=== PATIENT | female | born 1940 | race Caucasian/White ===

== ENCOUNTER 2016-02-23 14:13 | Inpatient (IN) | payer MEDICARE, MEDICAID ==
[~2016-02-23] VITALS: Ht 162.6 cm; Wt 80.7 kg
[~2016-02-23 14:13] MED LIST: ASCO500T10 PO; CITA10TA9 PO; HYDR-3326 PO; OXCA600T5 PO; PERP2TAB5 PO; [UNRECOGNIZED DRUG - CODE] PO
[2016-02-23] MEDS ORDERED: IV NS 0.9% 500 ML BAG IV ONE ×2 (15:00→17:30)
[2016-02-23 15:14] LABS: BASOPHILS % (AUTO) 0.1 % (0.0-2.0); DIFF TOTAL % 100 %; EOSINOPHILS # (AUTO) 0.2 /CMM (0.0-0.7); EOSINOPHILS % (AUTO) 1.5 % (0.0-6.0); HEMATOCRIT 38 % (33-45); HEMOGLOBIN 12.4 g/dL (11.5-14.8); LYMPHOCYTES # (AUTO) 0.7 /CMM (0.8-4.8); LYMPHOCYTES % (AUTO) 4.7 % (20.0-44.0); MEAN CORPUSCULAR HEMOGLOBIN 30 PG (26.0-33.0); MEAN CORPUSCULAR HGB CONC 33 g/dl (31.0-36.0); MEAN CORPUSCULAR VOLUME 93 fL (82-100); MONOCYTES # (AUTO) 0.5 /CMM (0.1-1.30); MONOCYTES % (AUTO) 3.8 % (2.0-12.0); NEUTROPHILS # (AUTO) 12.9 /CMM (1.8-8.9); NEUTROPHILS % (AUTO) 89.9 % (43.0-81.0); PLATELET COUNT (AUTO) 346 /CMM (150-450); RED BLOOD CELL COUNT(AUTO) 4.12 MIL/uL (4.0-5.2); WHITE BLOOD COUNT (AUTO) 14.3 K/uL (4.3-11.0)
[2016-02-23 15:33] LABS: LACTIC ACID 1.4 mmol/L (0.4-2.0); TROPONIN I 0.056 ng/mL (0.00-0.056)
[2016-02-23 15:40] LABS: ALBUMIN 3.5 g/dL (3.4-5.0); BILIRUBIN,DIRECT 0.1 mg/dL (0.0-0.2); BILIRUBIN,TOTAL 0.2 mg/dL (0.2-1.0); CALCIUM, SERUM 9.6 mg/dL (8.5-10.1); CREATININE 2.2 mg/dL (0.6-1.3); INDIRECT BILIRUBIN 0.1 mg/dL (0.0-1.1); TOTAL PROTEIN, SERUM 9.1 g/dL (6.4-8.2)
[2016-02-23 15:54] LABS: INR 1.05 (0.87-1.13); PROTHROMBIN TIME 11.4 SECS (9.5-12.7)
[2016-02-23] MEDS ORDERED: IV SET PRIMARY 1 EA INFUS.SET MC ONE ×2 (15:59→17:40)
[2016-02-23] MEDS ORDERED: IV NS 0.9% 500 ML IV ONE ×3 (15:59→23:30)
[2016-02-23 16:58] LABS: KETONES,URINE NEGATIVE (NEGATIVE); LEUKOCYTE ESTERASE ,URINE 3+ (NEGATIVE); PH,URINE 5.5 (5.0-8.0)
[2016-02-23 17:00] LABS: ADD UA MICROSCOPIC YES
[2016-02-23 17:16] LABS: ADD URINE CULTURE YES; RBC,URINE TOO NUMEROUS TO COUN /HPF (0-2); WBC,URINE TOO NUMEROUS TO COUN /HPF (0-3)
[2016-02-23] MEDS ORDERED: LEVOFLOXACIN 750 MG /D5W 150ML 150 ML IV ONE ×2 (17:30→17:40)
[2016-02-23] MEDS ORDERED: AZTREONAM 1 G in IV NS 0.9% 100 ML IV ONE (17:30)
[2016-02-23] MEDS ORDERED: IV SET PRIMARY PUMP SET 1 EA INFUS.SET MC ONE (17:40)
[2016-02-23 20:00] VITALS: BP 124/70
[2016-02-23 21:17] LABS: CREATININE 2.2 mg/dL (0.6-1.3); POTASSIUM 5.7 mmol/L (3.5-5.1)
[2016-02-23 22:00] VITALS: BP 124/70
[2016-02-23] MEDS ORDERED: ONDANSETRON HCL/PF 4 MG/2 ML VIAL IV PRN (23:30)
[2016-02-23] MEDS ORDERED: ACETAMINOPHEN 325 MG TABLET PO PRN (23:30)
[2016-02-23] MEDS ORDERED: IV NS 0.9% 1,000 ML BAG IV PRN (23:30)
[2016-02-24] VITALS: BP 130/66
[2016-02-24] MEDS ORDERED: IV SET PRIMARY PUMP SET 1 EA INFUS.SET MC ONE (00:28)
[2016-02-24] MEDS ORDERED: IV NS 0.9% 500 ML IV ONE (00:29)
[2016-02-24] MEDS ORDERED: IV SET PRIMARY 1 EA INFUS.SET MC ONE (00:41)
[2016-02-24 04:00] VITALS: BP 132/77
[2016-02-24] MEDS ORDERED: DOSE PER PHARMACY (MD SPECIFY MEDICATION) 1 EA XX PRN (07:30)
[2016-02-24] MEDS ORDERED: IV NS 0.9% 1,000 ML IV PRN (07:30)
[2016-02-24 08:00] VITALS: BP 110/83
[2016-02-24 09:14] LABS: BASOPHILS % (AUTO) 0.1 % (0.0-2.0); DIFF TOTAL % 100 %; EOSINOPHILS # (AUTO) 0.2 /CMM (0.0-0.7); EOSINOPHILS % (AUTO) 1.7 % (0.0-6.0); HEMATOCRIT 35 % (33-45); HEMOGLOBIN 11.4 g/dL (11.5-14.8); LYMPHOCYTES # (AUTO) 0.8 /CMM (0.8-4.8); LYMPHOCYTES % (AUTO) 5.9 % (20.0-44.0); MEAN CORPUSCULAR HEMOGLOBIN 31 PG (26.0-33.0); MEAN CORPUSCULAR HGB CONC 33 g/dl (31.0-36.0); MEAN CORPUSCULAR VOLUME 94 fL (82-100); MONOCYTES # (AUTO) 0.9 /CMM (0.1-1.30); MONOCYTES % (AUTO) 6.8 % (2.0-12.0); NEUTROPHILS % (AUTO) 85.5 % (43.0-81.0); PLATELET COUNT (AUTO) 272 /CMM (150-450); RED BLOOD CELL COUNT(AUTO) 3.68 MIL/uL (4.0-5.2); WHITE BLOOD COUNT (AUTO) 12.9 K/uL (4.3-11.0)
[2016-02-24 09:38] LABS: BILIRUBIN,TOTAL 0.2 mg/dL (0.2-1.0); CALCIUM, SERUM 9.1 mg/dL (8.5-10.1); PHOSPHORUS 4.6 mg/dL (2.5-4.9); POTASSIUM 5.8 mmol/L (3.5-5.1); TOTAL PROTEIN, SERUM 8.2 g/dL (6.4-8.2)
[2016-02-24 12:00] VITALS: BP 125/83
[2016-02-24] MEDS ORDERED: SODIUM POLYSTYRENE SULFONATE 15 G/60 ML BOTTLE PO ONE (12:30)
[2016-02-24] MEDS ORDERED: IV D5/ 0.9% NACL 1,000 ML IV ONE (12:38)
[2016-02-24] MEDS: IV D5/ 0.9% NACL 1,000 ML IV PRN (12:43)
[2016-02-24] MEDS ORDERED: FUROSEMIDE 40 MG/4 ML VIAL IV ONE (13:00)
[2016-02-24] MEDS ORDERED: PERMETHRIN 5% CRM 60 GM TUBE TP ONE (13:00)
[2016-02-24 16:00] VITALS: BP 124/63
[2016-02-24 20:00] VITALS: BP 111/61
[2016-02-24] MEDS ORDERED: HYDROCODONE/APAP 5/325MG 1 EACH TABLET PO PRN (20:30)
[2016-02-24] MEDS: OXCARBAZEPINE 150 MG TABLET PO SCH (20:34)
[2016-02-24] MEDS: ASCORBIC ACID 500 MG TABLET PO SCH (20:35)
[2016-02-24] MEDS: PROSOURCE / PROSTAT (PYXIS) 30 ML UDC GT SCH (20:35)
[2016-02-24] MEDS ORDERED: PERPHENAZINE 2 MG TABLET PO SCH (21:00)
[2016-02-24] MEDS ORDERED: CITALOPRAM HYDROBROMIDE SOLN 10 MG/5 ML UDC ONE (21:23)
[2016-02-24] MEDS: CITALOPRAM HYDROBROMIDE 10 MG TABLET PO SCH (22:12)
[2016-02-25] VITALS: BP 130/82
[2016-02-25 04:00] VITALS: BP 150/63
[2016-02-25] MEDS: IV D5/ 0.9% NACL 1,000 ML IV PRN (05:14)
[2016-02-25] MEDS ORDERED: ZIPRASIDONE MESYLATE 20 MG/VIAL VIAL IM ONE ×2 (05:34→21:54)
[2016-02-25] MEDS: ZIPRASIDONE MESYLATE 20 MG/VIAL VIAL IM PRN ×3 (05:46→22:06)
[2016-02-25 08:00] VITALS: BP 136/57
[2016-02-25 08:02] LABS: BASOPHILS % (AUTO) 0.3 % (0.0-2.0); DIFF TOTAL % 100 %; EOSINOPHILS # (AUTO) 0.4 /CMM (0.0-0.7); EOSINOPHILS % (AUTO) 5.6 % (0.0-6.0); HEMATOCRIT 31 % (33-45); HEMOGLOBIN 10.3 g/dL (11.5-14.8); LYMPHOCYTES # (AUTO) 0.7 /CMM (0.8-4.8); LYMPHOCYTES % (AUTO) 9.8 % (20.0-44.0); MEAN CORPUSCULAR HEMOGLOBIN 31 PG (26.0-33.0); MEAN CORPUSCULAR HGB CONC 34 g/dl (31.0-36.0); MEAN CORPUSCULAR VOLUME 93 fL (82-100); MONOCYTES # (AUTO) 0.5 /CMM (0.1-1.30); MONOCYTES % (AUTO) 6.7 % (2.0-12.0); NEUTROPHILS # (AUTO) 5.4 /CMM (1.8-8.9); NEUTROPHILS % (AUTO) 77.6 % (43.0-81.0); PLATELET COUNT (AUTO) 211 /CMM (150-450); RED BLOOD CELL COUNT(AUTO) 3.32 MIL/uL (4.0-5.2)
[2016-02-25 08:15] LABS: CREATININE 1.3 mg/dL (0.6-1.3); PHOSPHORUS 1.7 mg/dL (2.5-4.9); POTASSIUM 3.3 mmol/L (3.5-5.1)
[2016-02-25] MEDS: OXCARBAZEPINE 150 MG TABLET PO SCH ×2 (08:31→17:07)
[2016-02-25] MEDS: ASCORBIC ACID 500 MG TABLET PO SCH (08:31)
[2016-02-25] MEDS: PROSOURCE / PROSTAT (PYXIS) 30 ML UDC GT SCH ×3 (08:31→17:06)
[2016-02-25] MEDS: CITALOPRAM HYDROBROMIDE 10 MG TABLET PO SCH (09:00)
[2016-02-25] MEDS: PERPHENAZINE 2 MG TABLET PO SCH ×3 (09:00→17:07)
[2016-02-25] MEDS ORDERED: SECONDARY IV SET 1 EA INFUS.SET MC ONE ×2 (11:04→17:06)
[2016-02-25] MEDS: Potassium Phosphate meq 11 MEQ in IV D5W 100 ML IV SCH ×2 (11:09→15:16)
[2016-02-25] MEDS: ENOXAPARIN SODIUM 40 MG/0.4 ML DISP.SYRIN SQ SCH (11:09)
[2016-02-25] MEDS ORDERED: Z GUARD REMEDY 4 OZ OINT TP PRN (14:30)
[2016-02-25 16:00] VITALS: BP 139/61
[2016-02-25] MEDS: Z GUARD REMEDY 2 OZ OINT TP SCH ×2 (17:07→17:11)
[2016-02-25] MEDS: IV D5/0.45 NACL 1,000 ML IV PRN (17:14)
[2016-02-25] MEDS ORDERED: LEVOFLOXACIN 750 MG /D5W 150ML 750 MG in PREMIX 1 EA IV SCH (18:00)
[2016-02-25 20:00] VITALS: BP 141/80
[2016-02-25] MEDS ORDERED: PERMETHRIN 5% CRM 60 GM TUBE TP ONE (21:30)
[2016-02-26] MEDS: ZIPRASIDONE MESYLATE 20 MG/VIAL VIAL IM PRN (06:40)
[2016-02-26 08:00] VITALS: BP 141/49
[2016-02-26 08:52] LABS: DIFF TOTAL % 100 %; EOSINOPHILS # (AUTO) 0.4 /CMM (0.0-0.7); EOSINOPHILS % (AUTO) 5.1 % (0.0-6.0); HEMATOCRIT 35 % (33-45); HEMOGLOBIN 11.4 g/dL (11.5-14.8); LYMPHOCYTES # (AUTO) 0.7 /CMM (0.8-4.8); LYMPHOCYTES % (AUTO) 8.2 % (20.0-44.0); MEAN CORPUSCULAR HEMOGLOBIN 31 PG (26.0-33.0); MEAN CORPUSCULAR HGB CONC 33 g/dl (31.0-36.0); MEAN CORPUSCULAR VOLUME 93 fL (82-100); MONOCYTES # (AUTO) 0.4 /CMM (0.1-1.30); MONOCYTES % (AUTO) 4.6 % (2.0-12.0); NEUTROPHILS # (AUTO) 6.9 /CMM (1.8-8.9); NEUTROPHILS % (AUTO) 82.1 % (43.0-81.0); PLATELET COUNT (AUTO) 243 /CMM (150-450); RED BLOOD CELL COUNT(AUTO) 3.72 MIL/uL (4.0-5.2); WHITE BLOOD COUNT (AUTO) 8.4 K/uL (4.3-11.0)
[2016-02-26] MEDS: PERPHENAZINE 2 MG TABLET PO SCH ×3 (09:22→16:48)
[2016-02-26] MEDS: ASCORBIC ACID 500 MG TABLET PO SCH (09:22)
[2016-02-26] MEDS: OXCARBAZEPINE 150 MG TABLET PO SCH ×2 (09:22→16:48)
[2016-02-26] MEDS: PROSOURCE / PROSTAT (PYXIS) 30 ML UDC GT SCH ×3 (09:22→16:47)
[2016-02-26] MEDS: CITALOPRAM HYDROBROMIDE 10 MG TABLET PO SCH (09:22)
[2016-02-26] MEDS: Z GUARD REMEDY 2 OZ OINT TP SCH ×2 (09:23→16:48)
[2016-02-26] MEDS: ENOXAPARIN SODIUM 40 MG/0.4 ML DISP.SYRIN SQ SCH (09:23)
[2016-02-26 09:30] LABS: ALBUMIN 2.8 g/dL (3.4-5.0); BILIRUBIN,TOTAL 0.2 mg/dL (0.2-1.0); CALCIUM, SERUM 9.3 mg/dL (8.5-10.1); CREATININE 1.2 mg/dL (0.6-1.3); POTASSIUM 3.5 mmol/L (3.5-5.1)
[2016-02-26] MEDS ORDERED: FEE PK DOSING 1 MIN EA MC ONE (11:59)
[2016-02-26] MEDS ORDERED: SECONDARY IV SET 1 EA INFUS.SET MC ONE (13:37)
[2016-02-26] MEDS: GENTAMICIN 80 MG in IV D5W 100 ML IV SCH (13:53)
[2016-02-26 16:00] VITALS: BP 155/69
[2016-02-26] MEDS ORDERED: NEUTRA PHOS 1 POWD.PACKET PO ONE (16:00)
[2016-02-26] MEDS ORDERED: OLANZAPINE 10 MG VIAL IM PRN (17:30)
[2016-02-26] MEDS: OLANZAPINE 5 MG/TAB.RAPDIS PO SCH (18:24)
[2016-02-27] MEDS ORDERED: OLANZAPINE 10 MG VIAL IM ONE (02:53)
[2016-02-27 07:35] LABS: BASOPHILS % (AUTO) 0.4 % (0.0-2.0); DIFF TOTAL % 100 %; HEMATOCRIT 33 % (33-45); HEMOGLOBIN 10.8 g/dL (11.5-14.8); LYMPHOCYTES # (AUTO) 1.2 /CMM (0.8-4.8); LYMPHOCYTES % (AUTO) 16.3 % (20.0-44.0); MEAN CORPUSCULAR HEMOGLOBIN 31 PG (26.0-33.0); MEAN CORPUSCULAR HGB CONC 33 g/dl (31.0-36.0); MEAN CORPUSCULAR VOLUME 93 fL (82-100); MONOCYTES # (AUTO) 0.4 /CMM (0.1-1.30); MONOCYTES % (AUTO) 6.2 % (2.0-12.0); NEUTROPHILS # (AUTO) 4.5 /CMM (1.8-8.9); NEUTROPHILS % (AUTO) 63.1 % (43.0-81.0); PLATELET COUNT (AUTO) 245 /CMM (150-450); RED BLOOD CELL COUNT(AUTO) 3.52 MIL/uL (4.0-5.2); WHITE BLOOD COUNT (AUTO) 7.2 K/uL (4.3-11.0)
[2016-02-27 07:54] LABS: CALCIUM, SERUM 8.8 mg/dL (8.5-10.1); CREATININE 1.2 mg/dL (0.6-1.3); PHOSPHORUS 2.2 mg/dL (2.5-4.9); POTASSIUM 3.1 mmol/L (3.5-5.1)
[2016-02-27 08:00] VITALS: BP 144/59
[2016-02-27] MEDS: IV D5/0.45 NACL 1,000 ML IV PRN (08:19)
[2016-02-27] MEDS: ENOXAPARIN SODIUM 40 MG/0.4 ML DISP.SYRIN SQ SCH (09:17)
[2016-02-27] MEDS: OLANZAPINE 5 MG/TAB.RAPDIS PO SCH (09:17)
[2016-02-27] MEDS: OXCARBAZEPINE 150 MG TABLET PO SCH (09:18)
[2016-02-27] MEDS: PROSOURCE / PROSTAT (PYXIS) 30 ML UDC GT SCH ×2 (09:18→12:43)
[2016-02-27] MEDS: CITALOPRAM HYDROBROMIDE 10 MG TABLET PO SCH (09:18)
[2016-02-27] MEDS: ASCORBIC ACID 500 MG TABLET PO SCH (09:18)
[2016-02-27] MEDS: Z GUARD REMEDY 2 OZ OINT TP SCH (09:19)
[2016-02-27] MEDS: POTASSIUM CHLORIDE 20 MEQ POWDER PACKET PO SCH ×2 (12:43→13:45)
[2016-02-27] MEDS: GENTAMICIN 80 MG in IV D5W 100 ML IV SCH (12:43)
[2016-02-27] MEDS: Magnesium 1GM/D5W 100ML PREMIX 100 ML IV SCH ×2 (13:20→14:27)
[2016-02-27] MEDS ORDERED: K PHOS NEUTRAL 250 MG TABLET PO ONE (16:00)
[2016-02-27] MEDS ORDERED: ALLA266C2 TP (17:10)
[2016-02-27] MEDS ORDERED: MAGN64TA7 PO (17:10)
[2016-02-27] MEDS ORDERED: GENT40VI2 IV (17:10)
[2016-02-27] MEDS ORDERED: OLAN2.5T3 PO (17:10)
[2016-02-27] MEDS ORDERED: ONDA2VIA IV (17:10)
[2016-02-27] MEDS ORDERED: AMIN30LI25 PO (17:10)
[2016-02-27] MEDS ORDERED: OLAN10VI IM (17:10)
== END 2016-02-27 16:16 | DRG 689 ==
LOC: ER 14:13 → TELE1 19:06 → MEDSG1 02-25 09:50
PROVIDERS: ADMIT Internal Medicine Nephrology; ATTEND Internal Medicine Nephrology
DX: N39.0 Urinary tract infection, site not specified (principal); N17.0 Acute kidney failure with tubular necrosis; E87.0 Hyperosmolality and hypernatremia; F05 Delirium due to known physiological condition; N20.2 Calculus of kidney with calculus of ureter; E87.5 Hyperkalemia; D64.9 Anemia, unspecified; E03.9 Hypothyroidism, unspecified; E83.39 Other disorders of phosphorus metabolism; F02.80 Dementia in other diseases classified elsewhere, unspecified severity, without behavioral disturbance, psychotic disturbance, mood disturbance, and anxiety; G30.9 Alzheimer's disease, unspecified; F31.9 Bipolar disorder, unspecified; K21.9 Gastro-esophageal reflux disease without esophagitis; Z87.442 Personal history of urinary calculi; F25.0 Schizoaffective disorder, bipolar type; B96.20 Unspecified Escherichia coli [E. coli] as the cause of diseases classified elsewhere; B86 Scabies; E11.9 Type 2 diabetes mellitus without complications
CPT/HCPCS: 36415; 70450-TC; 71010-TC; 80048-TC; 80053-TC; 80076-TC; 81000-TC; 83605-TC; 83735-TC; 84100-TC; 84484-TC; 85025-TC; 85730-TC; 87040-TC; 87081-TC; 87086-TC; 87186-TC; 87400; 92526; 92611-TC; A4216; A4606; A6253; J1580; J1650; J1940; J1956; J3475; J3486; J3490; J7030; J7040; J7042; J7060; Q0175; Z7610

== ENCOUNTER 2016-02-27 16:17 | Inpatient (IN) | payer MEDICARE, MEDICAID ==
[~2016-02-27] VITALS: Ht 160 cm; Wt 73.5 kg
[2016-02-27] MEDS ORDERED: MAG HYDROX/AL HYDROX/SIMETH 30 ML UDC PO PRN (17:00)
[2016-02-27] MEDS ORDERED: ACETAMINOPHEN 325 MG TABLET PO PRN (17:00)
[2016-02-27] MEDS ORDERED: MAGNESIUM HYDROXIDE 30 ML UDC PO PRN (17:00)
[2016-02-27] MEDS ORDERED: GENT40VI2 IV (17:10)
[2016-02-27] MEDS ORDERED: OLAN2.5T3 PO (17:10)
[2016-02-27] MEDS ORDERED: AMIN30LI25 PO (17:10)
[2016-02-27] MEDS ORDERED: ALLA266C2 TP (17:10)
[2016-02-27] MEDS ORDERED: MAGN64TA7 PO (17:10)
[2016-02-27] MEDS ORDERED: OLAN10VI IM (17:10)
[2016-02-27] MEDS ORDERED: ONDA2VIA IV (17:10)
[2016-02-27 18:38] VITALS: BP 126/70
[2016-02-27 20:00] VITALS: BP 102/56
[2016-02-27] MEDS: TEMAZEPAM 7.5 MG CAPSULE PO PRN (21:54)
[2016-02-27] MEDS: CITALOPRAM HYDROBROMIDE 10 MG TABLET PO SCH (21:54)
[2016-02-27] MEDS: OLANZAPINE 5 MG/TAB.RAPDIS PO SCH (21:55)
[2016-02-28 07:35] LABS: ALBUMIN 2.8 g/dL (3.4-5.0); BILIRUBIN,TOTAL 0.3 mg/dL (0.2-1.0); CALCIUM, SERUM 8.9 mg/dL (8.5-10.1); CREATININE 1.2 mg/dL (0.6-1.3); POTASSIUM 4.2 mmol/L (3.5-5.1); TOTAL PROTEIN, SERUM 7.7 g/dL (6.4-8.2)
[2016-02-28 08:00] VITALS: BP 134/60
[2016-02-28] MEDS: Z GUARD REMEDY 2 OZ OINT TP SCH ×2 (09:09→17:04)
[2016-02-28] MEDS: OXCARBAZEPINE 150 MG TABLET PO SCH ×3 (09:09→17:04)
[2016-02-28] MEDS: MAGNESIUM CHLORIDE 64 MG TABLET.SA PO SCH (09:09)
[2016-02-28] MEDS: PROSOURCE / PROSTAT (PYXIS) 30 ML UDC PO SCH ×3 (09:09→17:04)
[2016-02-28] MEDS: ASCORBIC ACID 500 MG TABLET PO SCH (09:09)
[2016-02-28] MEDS: NITROFURANTOIN/NITROFURAN MAC 100 MG CAPSULE PO SCH ×2 (10:58→21:28)
[2016-02-28] MEDS ORDERED: GENTAMICIN 80 MG in IV D5W 100 ML IV SCH (13:00)
[2016-02-28] MEDS ORDERED: GENTAMICIN 80 MG/2 ML VIAL IV SCH (15:00)
[2016-02-28 16:00] VITALS: BP 108/69
[2016-02-28 20:32] VITALS: BP 121/68
[2016-02-28] MEDS: CITALOPRAM HYDROBROMIDE 10 MG TABLET PO SCH (23:15)
[2016-02-28] MEDS: OLANZAPINE 5 MG/TAB.RAPDIS PO SCH (23:16)
[2016-02-28] MEDS: TEMAZEPAM 7.5 MG CAPSULE PO PRN (23:16)
[2016-02-29 08:00] VITALS: BP 133/74
[2016-02-29 08:38] LABS: CALCIUM, SERUM 9.1 mg/dL (8.5-10.1); CREATININE 1.3 mg/dL (0.6-1.3); POTASSIUM 3.7 mmol/L (3.5-5.1)
[2016-02-29] MEDS: MAGNESIUM CHLORIDE 64 MG TABLET.SA PO SCH (10:51)
[2016-02-29] MEDS: NITROFURANTOIN/NITROFURAN MAC 100 MG CAPSULE PO SCH ×2 (10:51→22:15)
[2016-02-29] MEDS: OXCARBAZEPINE 150 MG TABLET PO SCH ×2 (10:51→16:19)
[2016-02-29] MEDS: Z GUARD REMEDY 2 OZ OINT TP SCH ×2 (10:52→16:19)
[2016-02-29] MEDS: ASCORBIC ACID 500 MG TABLET PO SCH (10:53)
[2016-02-29] MEDS: PROSOURCE / PROSTAT (PYXIS) 30 ML UDC PO SCH ×3 (10:53→16:19)
[2016-02-29 16:00] VITALS: BP 121/50
[2016-02-29 20:00] VITALS: BP 101/61
[2016-02-29] MEDS: OLANZAPINE 5 MG/TAB.RAPDIS PO SCH (22:15)
[2016-02-29] MEDS: TEMAZEPAM 7.5 MG CAPSULE PO PRN (22:15)
[2016-02-29] MEDS: CITALOPRAM HYDROBROMIDE 10 MG TABLET PO SCH (22:15)
[2016-03-01] MEDS: LORAZEPAM 0.5 MG TABLET PO PRN ×2 (00:44→14:37)
[2016-03-01 08:00] VITALS: BP 120/71
[2016-03-01] MEDS: ASCORBIC ACID 500 MG TABLET PO SCH (09:19)
[2016-03-01] MEDS: MAGNESIUM CHLORIDE 64 MG TABLET.SA PO SCH (09:19)
[2016-03-01] MEDS: OXCARBAZEPINE 150 MG TABLET PO SCH ×2 (09:19→17:57)
[2016-03-01] MEDS: NITROFURANTOIN/NITROFURAN MAC 100 MG CAPSULE PO SCH ×2 (09:20→21:08)
[2016-03-01] MEDS: PROSOURCE / PROSTAT (PYXIS) 30 ML UDC PO SCH ×3 (09:20→17:59)
[2016-03-01] MEDS: Z GUARD REMEDY 2 OZ OINT TP SCH ×2 (09:20→17:59)
[2016-03-01] MEDS: HYDROCODONE/APAP 5/325MG 1 EACH TABLET PO PRN (13:32)
[2016-03-01] MEDS: diphenhydrAMINE HCL 25 MG CAPSULE PO PRN (15:30)
[2016-03-01 16:12] VITALS: BP 120/67
[2016-03-01 19:56] VITALS: BP 127/75
[2016-03-01] MEDS ORDERED: PERMETHRIN 5% CRM 60 GM TUBE TP ONE (21:00)
[2016-03-01] MEDS: MUPIROCIN OINT 2% 22 GM TUBE SCH (21:07)
[2016-03-01] MEDS: OLANZAPINE 5 MG/TAB.RAPDIS PO SCH (21:08)
[2016-03-01] MEDS: CITALOPRAM HYDROBROMIDE 10 MG TABLET PO SCH (21:08)
[2016-03-01] MEDS: TEMAZEPAM 7.5 MG CAPSULE PO PRN (21:09)
[2016-03-02 08:00] VITALS: BP 122/59
[2016-03-02] MEDS: MAGNESIUM CHLORIDE 64 MG TABLET.SA PO SCH (09:06)
[2016-03-02] MEDS: PROSOURCE / PROSTAT (PYXIS) 30 ML UDC PO SCH ×3 (09:06→17:33)
[2016-03-02] MEDS: NITROFURANTOIN/NITROFURAN MAC 100 MG CAPSULE PO SCH ×2 (09:06→20:28)
[2016-03-02] MEDS: ASCORBIC ACID 500 MG TABLET PO SCH (09:07)
[2016-03-02] MEDS: OXCARBAZEPINE 150 MG TABLET PO SCH ×2 (09:07→17:33)
[2016-03-02] MEDS: MUPIROCIN OINT 2% 22 GM TUBE SCH ×2 (09:08→20:35)
[2016-03-02] MEDS: Z GUARD REMEDY 2 OZ OINT TP SCH ×2 (09:09→17:33)
[2016-03-02 16:00] VITALS: BP 105/60
[2016-03-02 19:53] VITALS: BP 101/56
[2016-03-02] MEDS: CITALOPRAM HYDROBROMIDE 10 MG TABLET PO SCH (21:02)
[2016-03-02] MEDS: OLANZAPINE 5 MG/TAB.RAPDIS PO SCH (21:02)
[2016-03-02] MEDS: TEMAZEPAM 7.5 MG CAPSULE PO PRN (21:02)
[2016-03-03 07:18] LABS: BASOPHILS % (AUTO) 0.3 % (0.0-2.0); DIFF TOTAL % 100 %; EOSINOPHILS # (AUTO) 0.8 /CMM (0.0-0.7); EOSINOPHILS % (AUTO) 8.3 % (0.0-6.0); HEMATOCRIT 37 % (33-45); HEMOGLOBIN 12.2 g/dL (11.5-14.8); LYMPHOCYTES # (AUTO) 1.1 /CMM (0.8-4.8); LYMPHOCYTES % (AUTO) 11.6 % (20.0-44.0); MEAN CORPUSCULAR HEMOGLOBIN 31 PG (26.0-33.0); MEAN CORPUSCULAR HGB CONC 34 g/dl (31.0-36.0); MEAN CORPUSCULAR VOLUME 93 fL (82-100); MONOCYTES # (AUTO) 0.5 /CMM (0.1-1.30); MONOCYTES % (AUTO) 5.1 % (2.0-12.0); NEUTROPHILS # (AUTO) 7.1 /CMM (1.8-8.9); NEUTROPHILS % (AUTO) 74.7 % (43.0-81.0); PLATELET COUNT (AUTO) 235 /CMM (150-450); RED BLOOD CELL COUNT(AUTO) 3.95 MIL/uL (4.0-5.2); WHITE BLOOD COUNT (AUTO) 9.6 K/uL (4.3-11.0)
[2016-03-03 07:43] LABS: CREATININE 1.3 mg/dL (0.6-1.3); PHOSPHORUS 3.1 mg/dL (2.5-4.9); POTASSIUM 3.7 mmol/L (3.5-5.1)
[2016-03-03 08:00] VITALS: BP 109/60
[2016-03-03] MEDS: MAGNESIUM CHLORIDE 64 MG TABLET.SA PO SCH (09:00)
[2016-03-03] MEDS: MUPIROCIN OINT 2% 22 GM TUBE SCH ×2 (09:00→21:59)
[2016-03-03] MEDS: ASCORBIC ACID 500 MG TABLET PO SCH (09:00)
[2016-03-03] MEDS: OXCARBAZEPINE 150 MG TABLET PO SCH ×2 (09:00→17:00)
[2016-03-03] MEDS: NITROFURANTOIN/NITROFURAN MAC 100 MG CAPSULE PO SCH ×2 (09:00→21:53)
[2016-03-03] MEDS: PROSOURCE / PROSTAT (PYXIS) 30 ML UDC PO SCH ×3 (09:00→17:00)
[2016-03-03] MEDS: Z GUARD REMEDY 2 OZ OINT TP SCH ×2 (10:37→17:00)
[2016-03-03 16:00] VITALS: BP 131/69
[2016-03-03] MEDS: CITALOPRAM HYDROBROMIDE 10 MG TABLET PO SCH (21:54)
[2016-03-03] MEDS: OLANZAPINE 5 MG/TAB.RAPDIS PO SCH (21:54)
[2016-03-03] MEDS: diphenhydrAMINE HCL 25 MG CAPSULE PO PRN (21:55)
[2016-03-03 22:11] VITALS: BP 112/65
[2016-03-04 08:00] VITALS: BP 130/68
[2016-03-04] MEDS: ASCORBIC ACID 500 MG TABLET PO SCH (08:36)
[2016-03-04] MEDS: MUPIROCIN OINT 2% 22 GM TUBE SCH ×2 (08:37→21:04)
[2016-03-04] MEDS: PROSOURCE / PROSTAT (PYXIS) 30 ML UDC PO SCH ×3 (08:37→16:33)
[2016-03-04] MEDS: NITROFURANTOIN/NITROFURAN MAC 100 MG CAPSULE PO SCH (08:37)
[2016-03-04] MEDS: OXCARBAZEPINE 150 MG TABLET PO SCH ×2 (08:37→16:34)
[2016-03-04] MEDS: Z GUARD REMEDY 2 OZ OINT TP SCH ×2 (08:37→16:33)
[2016-03-04] MEDS: MAGNESIUM CHLORIDE 64 MG TABLET.SA PO SCH (08:37)
[2016-03-04] MEDS ORDERED: IVERMECTIN 3 MG TABLET PO ONE (13:00)
[2016-03-04 16:36] VITALS: BP 141/77
[2016-03-04 19:55] VITALS: BP 114/71
[2016-03-04] MEDS: OLANZAPINE 5 MG/TAB.RAPDIS PO SCH (21:05)
[2016-03-04] MEDS: CITALOPRAM HYDROBROMIDE 10 MG TABLET PO SCH (21:05)
[2016-03-05 08:00] VITALS: BP 142/77
[2016-03-05] MEDS: OXCARBAZEPINE 150 MG TABLET PO SCH ×2 (09:03→16:54)
[2016-03-05] MEDS: PROSOURCE / PROSTAT (PYXIS) 30 ML UDC PO SCH ×3 (09:03→16:54)
[2016-03-05] MEDS: MAGNESIUM CHLORIDE 64 MG TABLET.SA PO SCH (09:03)
[2016-03-05] MEDS: Z GUARD REMEDY 2 OZ OINT TP SCH ×2 (09:04→16:54)
[2016-03-05] MEDS: MUPIROCIN OINT 2% 22 GM TUBE SCH ×2 (09:04→22:03)
[2016-03-05] MEDS: ASCORBIC ACID 500 MG TABLET PO SCH (09:09)
[2016-03-05 16:00] VITALS: BP 99/63
[2016-03-05] MEDS: LORAZEPAM 0.5 MG TABLET PO PRN (17:04)
[2016-03-05] MEDS: diphenhydrAMINE HCL 25 MG CAPSULE PO PRN (17:05)
[2016-03-05 20:24] VITALS: BP 119/59
[2016-03-05] MEDS: CITALOPRAM HYDROBROMIDE 10 MG TABLET PO SCH (22:04)
[2016-03-05] MEDS: TEMAZEPAM 7.5 MG CAPSULE PO PRN (22:04)
[2016-03-05] MEDS: OLANZAPINE 5 MG/TAB.RAPDIS PO SCH (22:04)
[2016-03-05] MEDS: HYDROCODONE/APAP 5/325MG 1 EACH TABLET PO PRN (22:05)
[2016-03-06 08:00] VITALS: BP 110/57
[2016-03-06] MEDS: PROSOURCE / PROSTAT (PYXIS) 30 ML UDC PO SCH ×3 (08:17→16:17)
[2016-03-06] MEDS: OXCARBAZEPINE 150 MG TABLET PO SCH ×2 (08:17→16:17)
[2016-03-06] MEDS: MUPIROCIN OINT 2% 22 GM TUBE SCH ×2 (08:17→21:23)
[2016-03-06] MEDS: MAGNESIUM CHLORIDE 64 MG TABLET.SA PO SCH (08:17)
[2016-03-06] MEDS: ASCORBIC ACID 500 MG TABLET PO SCH (08:17)
[2016-03-06] MEDS: Z GUARD REMEDY 2 OZ OINT TP SCH ×2 (08:21→16:17)
[2016-03-06 16:18] VITALS: BP 123/68
[2016-03-06] MEDS: diphenhydrAMINE HCL 25 MG CAPSULE PO PRN (16:42)
[2016-03-06] MEDS: CITALOPRAM HYDROBROMIDE 10 MG TABLET PO SCH (20:49)
[2016-03-06] MEDS: TEMAZEPAM 7.5 MG CAPSULE PO PRN (20:49)
[2016-03-06] MEDS: OLANZAPINE 5 MG/TAB.RAPDIS PO SCH (20:50)
[2016-03-06 23:46] VITALS: BP 108/61
[2016-03-07 08:00] VITALS: BP 149/74
[2016-03-07] MEDS: ASCORBIC ACID 500 MG TABLET PO SCH (08:21)
[2016-03-07] MEDS: OXCARBAZEPINE 150 MG TABLET PO SCH ×2 (08:21→17:27)
[2016-03-07] MEDS: MAGNESIUM CHLORIDE 64 MG TABLET.SA PO SCH (08:21)
[2016-03-07] MEDS: PROSOURCE / PROSTAT (PYXIS) 30 ML UDC PO SCH ×3 (08:21→17:27)
[2016-03-07] MEDS: Z GUARD REMEDY 2 OZ OINT TP SCH ×2 (08:22→17:28)
[2016-03-07] MEDS: MUPIROCIN OINT 2% 22 GM TUBE SCH ×2 (08:22→21:37)
[2016-03-07 15:58] VITALS: BP 128/67
[2016-03-07] MEDS: diphenhydrAMINE HCL 25 MG CAPSULE PO PRN (19:45)
[2016-03-07 20:00] VITALS: BP 123/72
[2016-03-07] MEDS: TEMAZEPAM 7.5 MG CAPSULE PO PRN (21:38)
[2016-03-07] MEDS: CITALOPRAM HYDROBROMIDE 10 MG TABLET PO SCH (21:38)
[2016-03-07] MEDS: OLANZAPINE 5 MG/TAB.RAPDIS PO SCH (21:38)
[2016-03-08 08:59] VITALS: BP 119/70
[2016-03-08] MEDS: MAGNESIUM CHLORIDE 64 MG TABLET.SA PO SCH (09:26)
[2016-03-08] MEDS: ASCORBIC ACID 500 MG TABLET PO SCH (09:26)
[2016-03-08] MEDS: PROSOURCE / PROSTAT (PYXIS) 30 ML UDC PO SCH ×3 (09:26→16:03)
[2016-03-08] MEDS: OXCARBAZEPINE 150 MG TABLET PO SCH ×2 (09:26→16:03)
[2016-03-08] MEDS: Z GUARD REMEDY 2 OZ OINT TP SCH ×2 (09:27→16:03)
[2016-03-08] MEDS: MUPIROCIN OINT 2% 22 GM TUBE SCH ×2 (09:27→21:43)
[2016-03-08 17:24] VITALS: BP 120/69
[2016-03-08 19:58] VITALS: BP 121/55
[2016-03-08] MEDS ORDERED: PERMETHRIN 5% CRM 60 GM TUBE TP ONE (21:00)
[2016-03-08] MEDS: CITALOPRAM HYDROBROMIDE 10 MG TABLET PO SCH (21:43)
[2016-03-08] MEDS: OLANZAPINE 5 MG/TAB.RAPDIS PO SCH (21:45)
[2016-03-08] MEDS: diphenhydrAMINE HCL 25 MG CAPSULE PO PRN (22:33)
[2016-03-09] MEDS: TEMAZEPAM 7.5 MG CAPSULE PO PRN ×2 (01:11→23:20)
[2016-03-09 08:00] VITALS: BP 99/52
[2016-03-09] MEDS: OXCARBAZEPINE 150 MG TABLET PO SCH ×2 (08:32→16:49)
[2016-03-09] MEDS: MAGNESIUM CHLORIDE 64 MG TABLET.SA PO SCH (08:32)
[2016-03-09] MEDS: ASCORBIC ACID 500 MG TABLET PO SCH (08:32)
[2016-03-09] MEDS: PROSOURCE / PROSTAT (PYXIS) 30 ML UDC PO SCH ×3 (08:32→16:49)
[2016-03-09] MEDS: MUPIROCIN OINT 2% 22 GM TUBE SCH ×2 (08:51→21:57)
[2016-03-09] MEDS: Z GUARD REMEDY 2 OZ OINT TP SCH ×2 (08:52→16:50)
[2016-03-09] MEDS ORDERED: IVERMECTIN 3 MG TABLET PO ONE (11:00)
[2016-03-09] MEDS: PERMETHRIN 5% CRM 60 GM TUBE TP SCH (11:14)
[2016-03-09 15:59] VITALS: BP 120/59
[2016-03-09 16:00] VITALS: BP 120/59
[2016-03-09 19:49] VITALS: BP 126/72
[2016-03-09] MEDS: CITALOPRAM HYDROBROMIDE 10 MG TABLET PO SCH (21:58)
[2016-03-09] MEDS: OLANZAPINE 5 MG/TAB.RAPDIS PO SCH (21:59)
[2016-03-10] MEDS: MAGNESIUM CHLORIDE 64 MG TABLET.SA PO SCH (08:36)
[2016-03-10] MEDS: ASCORBIC ACID 500 MG TABLET PO SCH (08:36)
[2016-03-10] MEDS: Z GUARD REMEDY 2 OZ OINT TP SCH (08:37)
[2016-03-10] MEDS: OXCARBAZEPINE 150 MG TABLET PO SCH (08:37)
[2016-03-10] MEDS: PROSOURCE / PROSTAT (PYXIS) 30 ML UDC PO SCH ×2 (08:37→13:16)
[2016-03-10] MEDS: MUPIROCIN OINT 2% 22 GM TUBE SCH (08:37)
[2016-03-10 08:39] VITALS: BP 103/60
[2016-03-10] MEDS ORDERED: IVERMECTIN 3 MG TABLET PO ONE (09:00)
[2016-03-10] MEDS: PERMETHRIN 5% CRM 60 GM TUBE TP SCH (09:03)
[2016-03-16] MEDS ORDERED: IVERMECTIN 3 MG TABLET PO ONE (09:00)
[2016-03-17] MEDS ORDERED: IVERMECTIN 3 MG TABLET PO ONE (09:00)
[2016-03-23] MEDS ORDERED: IVERMECTIN 3 MG TABLET PO ONE (09:00)
== END 2016-03-10 16:32 | DRG 885 ==
LOC: GPS 16:17
PROVIDERS: ADMIT Psychiatry & Neurology Psychosomatic Medicine; ATTEND Internal Medicine Nephrology
DX: F31.60 Bipolar disorder, current episode mixed, unspecified (principal); F02.80 Dementia in other diseases classified elsewhere, unspecified severity, without behavioral disturbance, psychotic disturbance, mood disturbance, and anxiety; N17.0 Acute kidney failure with tubular necrosis; N39.0 Urinary tract infection, site not specified; E87.0 Hyperosmolality and hypernatremia; G30.9 Alzheimer's disease, unspecified; I10 Essential (primary) hypertension; E11.9 Type 2 diabetes mellitus without complications; B86 Scabies; N20.0 Calculus of kidney; E87.5 Hyperkalemia; L30.9 Dermatitis, unspecified; R21 Rash and other nonspecific skin eruption; E03.9 Hypothyroidism, unspecified; E86.0 Dehydration; F41.9 Anxiety disorder, unspecified; K21.9 Gastro-esophageal reflux disease without esophagitis; R56.9 Unspecified convulsions; Z22.322 Carrier or suspected carrier of Methicillin resistant Staphylococcus aureus
CPT/HCPCS: 36415; 80048-TC; 80053-TC; 80061-TC; 83735-TC; 84100-TC; 85025-TC; 87081-TC; 97001-TC; J1580; J7060; Q0163

== ENCOUNTER 2016-05-18 17:52 | Inpatient (IN) | payer MEDICARE, OTHER ==
[~2016-05-18] VITALS: Ht 157.5 cm; Wt 78.5 kg
[~2016-05-18 17:52] MED LIST changes: +ALLA266C2 TP; +AMIN30LI25 PO; -CITA10TA9 PO; +GENT40VI2 IV; +MAGN64TA7 PO; -OXCA600T5 PO; -PERP2TAB5 PO; -[UNRECOGNIZED DRUG - CODE] PO
--- NOTE | 2016-05-18 17:58 | NUR ---
PT BABS FROM [place], PT HERE FOR PSYCH EVAL AFTER BEING AGGRESIVE TOWARDS SNF STAFF. DENIES ANY PAIN. PLACED ON MONITOR. VSS. AWAITING MD ORDER
[2016-05-18 18:19] LABS: BASOPHILS % (AUTO) 0.4 % (0.0-2.0); EOSINOPHILS # (AUTO) 0.3 /CMM (0.0-0.7); EOSINOPHILS % (AUTO) 4.6 % (0.0-6.0); HEMATOCRIT 37 % (33-45); HEMOGLOBIN 12.1 g/dL (11.5-14.8); LYMPHOCYTES # (AUTO) 0.6 /CMM (0.8-4.8); LYMPHOCYTES % (AUTO) 9.4 % (20.0-44.0); MEAN CORPUSCULAR HEMOGLOBIN 29 PG (26.0-33.0); MEAN CORPUSCULAR HGB CONC 33 g/dl (31.0-36.0); MEAN CORPUSCULAR VOLUME 90 fL (82-100); MONOCYTES # (AUTO) 0.3 /CMM (0.1-1.30); NEUTROPHILS # (AUTO) 5.6 /CMM (1.8-8.9); NEUTROPHILS % (AUTO) 80.6 % (43.0-81.0); PLATELET COUNT (AUTO) 278 /CMM (150-450); RDW COEFFICIENT OF VARIATION 13.7 (11.5-15.0); RED BLOOD CELL COUNT(AUTO) 4.15 MIL/uL (4.0-5.2); WHITE BLOOD COUNT (AUTO) 6.8 K/uL (4.3-11.0)
[2016-05-18 18:33] LABS: ALANINE AMINOTRANSFERASE 17 U/L (12-78); ALBUMIN 3.3 g/dL (3.4-5.0); ALKALINE PHOSPHATASE 123 U/L (46-116); ASPARTATE AMINOTRANSFERASE 12 U/L (15-37); BILIRUBIN,DIRECT 0.1 mg/dL (0.0-0.2); BILIRUBIN,TOTAL 0.3 mg/dL (0.2-1.0); CALCIUM, SERUM 9.8 mg/dL (8.5-10.1); CARBON DIOXIDE 29 mmol/L (21-32); CHLORIDE 100 mmol/L (98-107); CREATININE 1.3 mg/dL (0.6-1.3); GLUCOSE 93 mg/dL (74-106); POTASSIUM 4.1 mmol/L (3.5-5.1); SODIUM SERUM 137 mmol/L (136-145); TOTAL PROTEIN, SERUM 8.6 g/dL (6.4-8.2)
[2016-05-18 18:37] LABS: UREA NITROGEN, BLOOD 25 mg/dL (7-18)
[2016-05-18 18:38] LABS: ACETAMINOPHEN 0 ug/ml (10-30); ALCOHOL, BLOOD < 5 mg/dL (0-0); SALICYLATE 2.2 mg/dL (2.8-20.0)
[2016-05-18] MEDS ORDERED: ACET-868 PO (18:43)
[2016-05-18] MEDS ORDERED: CRAN3875 PO (18:43)
[2016-05-18] MEDS ORDERED: DIPH25CA83 PO (18:43)
[2016-05-18] MEDS ORDERED: MAG30ORA GT (18:43)
[2016-05-18] MEDS ORDERED: BISA10SU8 RC (18:43)
[2016-05-18] MEDS ORDERED: OXCA600T5 PO (18:43)
[2016-05-18] MEDS ORDERED: ACET-2605 PO (18:43)
[2016-05-18] MEDS ORDERED: GUAI5SYR PO (18:43)
[2016-05-18] MEDS ORDERED: ASCO-340 PO (18:43)
[2016-05-18] MEDS ORDERED: CLON0.5T PO (18:43)
[2016-05-18] MEDS ORDERED: DOCU-25 PO (18:43)
[2016-05-18] MEDS ORDERED: OLAN5TAB3 PO (18:43)
[2016-05-18] MEDS ORDERED: LORA-258 PO (18:43)
[2016-05-18] MEDS ORDERED: ALBU1.257 NEB (18:43)
[2016-05-18] MEDS ORDERED: NA P133E RC (18:43)
[2016-05-18] MEDS ORDERED: PANT40TA2 PO (18:43)
[2016-05-18] MEDS ORDERED: CRAN425C PO (18:43)
[2016-05-18] MEDS ORDERED: FERR-58 PO (18:43)
[2016-05-18] MEDS ORDERED: MAGN400O6 PO (18:43)
[2016-05-18] MEDS ORDERED: AMIN30LI2 PO (18:43)
[2016-05-18] MEDS ORDERED: IPRA0.2S49 NEB (18:43)
--- NOTE | 2016-05-18 18:55 | NUR ---
URINE SAMPLE COLLECTED SENT TO LAB
[2016-05-18 19:01] LABS: APPEARANCE,URINE Cloudy (CLEAR); BILIRUBIN,URINE Negative (NEGATIVE); BLOOD, URINE Moderate Ery/uL (NEGATIVE); COLOR,URINE Yellow (YELLOW); KETONES,URINE Negative (NEGATIVE); LEUKOCYTE ESTERASE ,URINE Large (NEGATIVE); NITRITE, URINE Positive (NEGATIVE); PROTEIN,URINE 30 mg/dl (NEGATIVE); UGLUCOSE Negative (NEGATIVE); UROBILINOGEN,URINE 0.2 EU/dL (0.2)
[2016-05-18 19:03] LABS: CANNABINOID, URINE NEGATIVE (NEGATIVE); PHENCYCLIDINE SCREEN,URINE NEGATIVE (NEGATIVE)
--- NOTE | 2016-05-18 19:11 | NUR ---
RECEIVED REPORT FROM ANCELMO RAINEY FOR [facility]. XRAY AT BEDSIDE. PT NOTED COMFORTABLE IN BED.
[2016-05-18] MEDS ORDERED: NITROFURANTOIN/NITROFURAN MAC 100 MG CAPSULE PO ONE (19:30)
[2016-05-18] MEDS ORDERED: NITROFURANTOIN/NITROFURAN MAC 100 MG CAPSULE ONE (19:34)
--- NOTE | 2016-05-18 19:54 | NUR ---
PINKY AT BEDSIDE FOR EVAL.
[2016-05-18 20:17] LABS: ADD URINE CULTURE YES; BACTERIA,URINE Many /HPF (None Seen); WBC,URINE TOO NUMEROUS TO COUN /HPF (0-3)
[2016-05-18 20:18] LABS: SQUAMOUS EPITHELIAL CELL,UR Few /HPF (None Seen); URINE AMORPHOUS URATE Moderate /HPF (None Seen)
--- NOTE | 2016-05-18 20:20 | NUR ---
PT PLACED ON 5150 HOLD. ADMITTING MD DERAS/ NATALY.
--- NOTE | 2016-05-18 20:21 | NUR ---
PT ASSIGNED TO MEGHAN [facility]
--- NOTE | 2016-05-18 20:25 | NUR ---
REPORT GIVEN TO ANCELMO VALENZUELA FOR [facility] BED 212-B
--- NOTE | 2016-05-18 20:35 | NUR ---
ADMITTED A 75 Y/O FEMALE FROM [facility], ON 5150 HOLD GRAVELY DISABLE ADULT, BASED ON HOLD, PATIENT IS VERBALLY AGGRESSIVE TOWARDS STAFFS AND RESIDENTS, REFUSING CARE AND DELUSIONAL THINKING. ADMITTING DX. OF PSYCHOSIS AND MEDICAL DX. OF COPD, UTI,DM 2, HYPERTENSION, HYDROCEPHALUS, PSORIASIS, GERD, CHF, HYPOTHYROIDISM, HX. OF SCABIES, ENCEPHALOPATHY, ANEMIA AND OSTEOARTHRITIS. UPON FACE TO FACE EVALUATION, PATIENT IS ALERT AND ORIENTED X 1, CONFUSED, DISORIENTED, DISORGANIZED, DELUSIONAL, PARANOID, HYPERVERBAL, TALKING TO SELF, NO SOB, NO ACUTE DISTRESS, BREATHING EVEN AND UNLABORED, NO S/S OF PAIN AND DISCOMFORT, BODY CHECK DONE, PICTURE TAKEN, BELONGING INSPECTED AND PLACED ON THE PATIENT'S LOCKED CABINET, PAPER WORKS SIGNED BY THE SON DARREN LEMUS. NOTIFIED DR. CORDOVA AND DR. DERAS TO RECONCILE MEDICATION. ALL NEEDS ATTENDED AND MET, WILL CONTINUE TO MONITOR [id number] FOR SAFETY.
--- NOTE | 2016-05-18 20:35 | NUR ---
PT TRASNFERED VIA [facility]
[2016-05-18] MEDS ORDERED: MAGNESIUM HYDROXIDE 30 ML UDC PO PRN (21:30)
[2016-05-18] MEDS ORDERED: MAG HYDROX/AL HYDROX/SIMETH 30 ML UDC PO PRN (21:30)
[2016-05-18] MEDS ORDERED: ACETAMINOPHEN 325 MG TABLET PO PRN ×2 (21:30→22:30)
[2016-05-18 21:47] VITALS: BP 109/78
[2016-05-18] MEDS ORDERED: LORAZEPAM 0.5 MG TABLET PO PRN (22:00)
[2016-05-18] MEDS ORDERED: MAG HYDROX/AL HYDROX/SIMETH 30 ML UDC GT PRN (22:30)
[2016-05-18] MEDS ORDERED: NA PHOS,M-B/NA PHOS,DI-BA 1 EA ENEMA RC PRN (22:30)
[2016-05-18] MEDS ORDERED: BISACODYL SUPP (10 MG) 10 MG/SUPP.RECT SUPP.RECT RC PRN (22:30)
[2016-05-18] MEDS ORDERED: GUAIFENESIN/D-METHORPHAN HB 5 ML UDC PO PRN (22:30)
[2016-05-18] MEDS ORDERED: MISCELLANEOUS MED 1 EA EA PO PRN (22:30)
[2016-05-18] MEDS ORDERED: ALBUTEROL FS 2.5 MG/3 ML VIAL.NEB NEB PRN (23:30)
[2016-05-18] MEDS ORDERED: IPRATROPIUM NEB FS 0.5 MG/2.5 ML AMPUL.NEB NEB PRN (23:30)
[2016-05-18 23:56] VITALS: BP 109/78
[2016-05-19] MEDS ORDERED: ALBUTEROL HALF STRENGTH 1.25 MG/3 ML VIAL.NEB NEB SCH
[2016-05-19] MEDS ORDERED: IPRATROPIUM NEB FS 0.5 MG/2.5 ML AMPUL.NEB NEB SCH
[2016-05-19] MEDS ORDERED: diphenhydrAMINE HCL 25 MG CAPSULE ONE (01:50)
[2016-05-19] MEDS ORDERED: LORAZEPAM 0.5 MG TABLET ONE (01:51)
[2016-05-19 07:09] LABS: CREATININE 1.2 mg/dL (0.6-1.3)
[2016-05-19] MEDS ORDERED: Medication Not On Formulary EA (Cranberry Extract (Cranberry) 425 MG) PO SCH (09:00)
[2016-05-19] MEDS ORDERED: Medication Not On Formulary EA (Cran/Vitc/Mannose/Inulin/Brom (Uti-Stat Liquid) 30 MG) PO SCH (09:00)
[2016-05-19] MEDS: PANTOPRAZOLE 40 MG TABLET.DR PO SCH (09:23)
[2016-05-19] MEDS: NITROFURANTOIN/NITROFURAN MAC 100 MG CAPSULE PO SCH ×2 (09:23→21:22)
[2016-05-19] MEDS: FERROUS SULFATE (325 MG) 325 MG/TAB TABLET PO SCH ×2 (09:23→17:33)
[2016-05-19] MEDS: LORAZEPAM 0.5 MG TABLET PO PRN (09:24)
[2016-05-19] MEDS: PROSOURCE / PROSTAT (PYXIS) 30 ML UDC PO SCH (09:24)
--- NOTE | 2016-05-19 09:24 | NUR ---
administered ativan 0.25 mg po prn for anxiety, paranoia, v/s taken bp-112/83, p-90, continued monitoring. encouraged to increase fluid intake.
--- NOTE | 2016-05-19 12:45 | NUR ---
Initial discharge plan: Pt. is a skilled nursing care resident at [place] [address] [facility] [id number] . SW left a voicemail for admission to confirm readmission. SW confirmed with son, Moi Vega [phone] and he agrees with the discharge plan. IGOR will follow up with MD and will help form safe and proper discharge.
[2016-05-19] MEDS: OXCARBAZEPINE 150 MG TABLET PO SCH (17:47)
[2016-05-19] MEDS: OLANZAPINE 5 MG/TAB.RAPDIS PO SCH (17:48)
[2016-05-19 20:12] VITALS: BP 105/64
[2016-05-19] MEDS: DOCUSATE SODIUM 100 MG CAPSULE PO SCH (21:22)
[2016-05-20] MEDS: diphenhydrAMINE HCL 25 MG CAPSULE PO PRN ×2 (06:46→22:15)
[2016-05-20 06:47] LABS: BASOPHILS % (AUTO) 0.4 % (0.0-2.0); EOSINOPHILS # (AUTO) 0.5 /CMM (0.0-0.7); EOSINOPHILS % (AUTO) 9.3 % (0.0-6.0); HEMATOCRIT 34 % (33-45); HEMOGLOBIN 11.1 g/dL (11.5-14.8); LYMPHOCYTES # (AUTO) 1.1 /CMM (0.8-4.8); LYMPHOCYTES % (AUTO) 19.1 % (20.0-44.0); MEAN CORPUSCULAR HEMOGLOBIN 30 PG (26.0-33.0); MEAN CORPUSCULAR HGB CONC 33 g/dl (31.0-36.0); MEAN CORPUSCULAR VOLUME 90 fL (82-100); MONOCYTES # (AUTO) 0.6 /CMM (0.1-1.30); MONOCYTES % (AUTO) 10.6 % (2.0-12.0); NEUTROPHILS # (AUTO) 3.4 /CMM (1.8-8.9); NEUTROPHILS % (AUTO) 60.6 % (43.0-81.0); PLATELET COUNT (AUTO) 280 /CMM (150-450); RDW COEFFICIENT OF VARIATION 14.3 (11.5-15.0); RED BLOOD CELL COUNT(AUTO) 3.73 MIL/uL (4.0-5.2); WHITE BLOOD COUNT (AUTO) 5.6 K/uL (4.3-11.0)
[2016-05-20 07:30] LABS: BILIRUBIN,TOTAL 0.2 mg/dL (0.2-1.0); CALCIUM, SERUM 9.4 mg/dL (8.5-10.1); CREATININE 1.4 mg/dL (0.6-1.3); PHOSPHORUS 4.5 mg/dL (2.5-4.9); TOTAL PROTEIN, SERUM 7.9 g/dL (6.4-8.2)
[2016-05-20 08:00] VITALS: BP 126/64
[2016-05-20] MEDS: OLANZAPINE 5 MG/TAB.RAPDIS PO SCH ×2 (08:29→16:10)
[2016-05-20] MEDS: NITROFURANTOIN/NITROFURAN MAC 100 MG CAPSULE PO SCH ×2 (08:29→21:44)
[2016-05-20] MEDS: ASCORBIC ACID 500 MG TABLET PO SCH (08:29)
[2016-05-20] MEDS: OXCARBAZEPINE 150 MG TABLET PO SCH ×2 (08:29→16:10)
[2016-05-20] MEDS: PROSOURCE / PROSTAT (PYXIS) 30 ML UDC PO SCH (08:29)
[2016-05-20] MEDS: PANTOPRAZOLE 40 MG TABLET.DR PO SCH (08:29)
[2016-05-20] MEDS: FERROUS SULFATE (325 MG) 325 MG/TAB TABLET PO SCH ×2 (08:29→16:10)
[2016-05-20] MEDS: LORAZEPAM 0.5 MG TABLET PO PRN (10:55)
--- NOTE | 2016-05-20 10:55 | NUR ---
GPS RN NOTE: ATIVAN 0.25 MG PO PRN GIVEN FOR ANXIETY PATENT RESTLESS AND ANXIOUS VSS STABLE WILL CONTINUE MONITORING FOR SAFETY AND BEHAVIOR Q 15 MIN
[2016-05-20] MEDS ORDERED: PERMETHRIN 5% CRM 60 GM TUBE TP ONE (13:00)
[2016-05-20 16:00] VITALS: BP 105/64
--- NOTE | 2016-05-20 18:23 | NUR ---
GPS RN NOTE: ELIMITE CREAM APPLIED ORDER WILL INDORSE TO INCOMING SHIFT TO SHOWER PT AND CONTINUE MONITORING
--- NOTE | 2016-05-20 19:52 | NUR ---
GPS/RN NOTES PT RECEIVED ASLEEP, AROUSABLE TO TOUCH. BREATHING EVEN AND UNLABORED, NO S/S OF DISTRESS, PAIN OR SOB NOTED. GRANDDAUGHTER AT BEDSIDE. BED IN LOW/LOCKED POSITION, CALL LIGHT IN REACH. BED RAILS UPX AND ALARM ON. WILL CONTINUE TO MONITOR Addendum: 05/20/16 at 1958 by FRANCISCO J CORTES RN NO CALL LIGHT
[2016-05-20 20:00] VITALS: BP 139/69
[2016-05-20 20:29] VITALS: BP 139/69
[2016-05-20] MEDS: DOCUSATE SODIUM 100 MG CAPSULE PO SCH (21:44)
--- NOTE | 2016-05-20 22:15 | NUR ---
GPS/RN NOTES PT COMPLAINING OF SEVERE ITCHINESS. ADMINISTERED PRN BENADRYL 25MG PO ORDERED.
--- NOTE | 2016-05-20 22:30 | NUR ---
GPS/RN NOTES PT TAKEN BY CNAS TO HAVE A SHOWER
[2016-05-21] MEDS: diphenhydrAMINE HCL 25 MG CAPSULE PO PRN (05:53)
--- NOTE | 2016-05-21 05:57 | NUR ---
GPS/RN NOTES PT COMPLAINING OF ITCHING, OFFERED PRN BENADRYL. PT ACCEPTED BUT STATED IT ONLY WORKS FOR A LITTLE BIT. ADMINISTERED BENADRYL ORDERED. WILL CONTINUE TO MONITOR
--- NOTE | 2016-05-21 06:48 | NUR ---
GPS/RN CLOSING NOTES PT ASLEEP, AROUSABLE TO NAME, A/OX1, CONFUSED. BREATHING EVEN AND UNLABORED. NO S/S OF DISTRESS. PT SLEPT INTERMITTENTLY THROUGHOUT THE NIGHT. ORIENTED PT PRN. COMPLAINED OF OCCASIONAL ITCHINESS. SAFETY PRECAUTIONS IMPLEMENTED THROUGHOUT SHIFT. TURNED AND REPOSITIONED Q2H, OFFLOADED EXTREMITIES. WILL ENDORSE TO AM SHIFT NIURKA. Addendum: 05/21/16 at 0655 by FRANCISCO J CORTES RN FREQUENT VISUAL CHECKS.
[2016-05-21 08:00] VITALS: BP 113/63
[2016-05-21] MEDS: PROSOURCE / PROSTAT (PYXIS) 30 ML UDC PO SCH (08:10)
[2016-05-21] MEDS: ASCORBIC ACID 500 MG TABLET PO SCH (08:10)
[2016-05-21] MEDS: OXCARBAZEPINE 150 MG TABLET PO SCH ×2 (08:10→16:28)
[2016-05-21] MEDS: FERROUS SULFATE (325 MG) 325 MG/TAB TABLET PO SCH ×2 (08:10→16:29)
[2016-05-21] MEDS: PANTOPRAZOLE 40 MG TABLET.DR PO SCH (08:11)
[2016-05-21] MEDS: NITROFURANTOIN/NITROFURAN MAC 100 MG CAPSULE PO SCH ×2 (08:12→22:37)
[2016-05-21] MEDS: OLANZAPINE 5 MG/TAB.RAPDIS PO SCH ×3 (08:15→16:29)
[2016-05-21] MEDS: MUPIROCIN OINT 2% 22 GM TUBE SCH ×2 (10:37→22:36)
[2016-05-21 16:05] VITALS: BP 105/55
[2016-05-21 20:00] VITALS: BP 120/69
[2016-05-21] MEDS: DOCUSATE SODIUM 100 MG CAPSULE PO SCH (22:37)
[2016-05-22] MEDS: clonazePAM 0.5 MG TABLET PO PRN ×3 (00:18→22:19)
[2016-05-22 07:00] LABS: BASOPHILS % (AUTO) 0.3 % (0.0-2.0); EOSINOPHILS # (AUTO) 0.6 /CMM (0.0-0.7); EOSINOPHILS % (AUTO) 8.7 % (0.0-6.0); HEMATOCRIT 35 % (33-45); HEMOGLOBIN 11.3 g/dL (11.5-14.8); LYMPHOCYTES # (AUTO) 1.2 /CMM (0.8-4.8); LYMPHOCYTES % (AUTO) 17.9 % (20.0-44.0); MEAN CORPUSCULAR HEMOGLOBIN 29 PG (26.0-33.0); MEAN CORPUSCULAR HGB CONC 33 g/dl (31.0-36.0); MEAN CORPUSCULAR VOLUME 88 fL (82-100); MONOCYTES # (AUTO) 0.4 /CMM (0.1-1.30); MONOCYTES % (AUTO) 6.7 % (2.0-12.0); NEUTROPHILS # (AUTO) 4.4 /CMM (1.8-8.9); NEUTROPHILS % (AUTO) 66.4 % (43.0-81.0); PLATELET COUNT (AUTO) 286 /CMM (150-450); RDW COEFFICIENT OF VARIATION 14.1 (11.5-15.0); RED BLOOD CELL COUNT(AUTO) 3.92 MIL/uL (4.0-5.2); WHITE BLOOD COUNT (AUTO) 6.6 K/uL (4.3-11.0)
[2016-05-22 07:03] LABS: CALCIUM, SERUM 8.9 mg/dL (8.5-10.1); CREATININE 1.2 mg/dL (0.6-1.3); MAGNESIUM 1.7 mg/dL (1.8-2.4); PHOSPHORUS 3.5 mg/dL (2.5-4.9)
[2016-05-22 08:00] VITALS: BP 140/74
[2016-05-22] MEDS: OXCARBAZEPINE 150 MG TABLET PO SCH ×2 (08:29→16:52)
[2016-05-22] MEDS: FERROUS SULFATE (325 MG) 325 MG/TAB TABLET PO SCH ×2 (08:29→16:52)
[2016-05-22] MEDS: ASCORBIC ACID 500 MG TABLET PO SCH (08:29)
[2016-05-22] MEDS: PROSOURCE / PROSTAT (PYXIS) 30 ML UDC PO SCH (08:29)
[2016-05-22] MEDS: PANTOPRAZOLE 40 MG TABLET.DR PO SCH (08:30)
[2016-05-22] MEDS: NITROFURANTOIN/NITROFURAN MAC 100 MG CAPSULE PO SCH ×2 (08:30→21:34)
[2016-05-22] MEDS: OLANZAPINE 5 MG/TAB.RAPDIS PO SCH ×3 (08:30→16:52)
[2016-05-22] MEDS: MUPIROCIN OINT 2% 22 GM TUBE SCH ×2 (08:36→21:34)
[2016-05-22] MEDS ORDERED: MAGNESIUM OXIDE 400 MG TABLET PO ONE (11:30)
[2016-05-22 16:01] VITALS: BP 123/81
[2016-05-22 20:46] VITALS: BP 126/81
[2016-05-22] MEDS: DOCUSATE SODIUM 100 MG CAPSULE PO SCH (22:18)
[2016-05-23 07:53] VITALS: BP 119/68
[2016-05-23 08:00] LABS: CALCIUM, SERUM 9.3 mg/dL (8.5-10.1); CREATININE 1.1 mg/dL (0.6-1.3); MAGNESIUM 1.8 mg/dL (1.8-2.4); POTASSIUM 4.3 mmol/L (3.5-5.1)
[2016-05-23] MEDS: NITROFURANTOIN/NITROFURAN MAC 100 MG CAPSULE PO SCH ×2 (08:25→20:37)
[2016-05-23] MEDS: ASCORBIC ACID 500 MG TABLET PO SCH (08:25)
[2016-05-23] MEDS: PANTOPRAZOLE 40 MG TABLET.DR PO SCH (08:26)
[2016-05-23] MEDS: OLANZAPINE 5 MG/TAB.RAPDIS PO SCH ×3 (08:26→18:10)
[2016-05-23] MEDS: FERROUS SULFATE (325 MG) 325 MG/TAB TABLET PO SCH ×2 (08:26→18:10)
[2016-05-23] MEDS: PROSOURCE / PROSTAT (PYXIS) 30 ML UDC PO SCH (08:27)
[2016-05-23] MEDS: OXCARBAZEPINE 150 MG TABLET PO SCH ×2 (08:27→18:10)
[2016-05-23] MEDS: MUPIROCIN OINT 2% 22 GM TUBE SCH ×2 (08:28→20:38)
[2016-05-23 16:02] VITALS: BP 120/70
[2016-05-23] MEDS: clonazePAM 0.5 MG TABLET PO PRN (18:10)
--- NOTE | 2016-05-23 18:10 | NUR ---
ADMINISTERED KLONOPIN 0.25 MG PO PRN FOR ANXIETY, YELLING, SCREAMING, V/S TAKEN BP-120/70, P-70, CONTINUED MONITORING.
[2016-05-23 20:00] VITALS: BP 109/66
[2016-05-23] MEDS: DOCUSATE SODIUM 100 MG CAPSULE PO SCH (22:00)
--- NOTE | 2016-05-24 00:32 | NUR ---
GPS//RN NOTE: UNABLE TO ADMINISTER PO COLACE , PATIENT LETHARGIC.
[2016-05-24 08:00] VITALS: BP 121/64
[2016-05-24] MEDS: FERROUS SULFATE (325 MG) 325 MG/TAB TABLET PO SCH ×2 (08:32→16:39)
[2016-05-24] MEDS: OLANZAPINE 5 MG/TAB.RAPDIS PO SCH ×3 (08:32→16:39)
[2016-05-24] MEDS: ASCORBIC ACID 500 MG TABLET PO SCH (08:32)
[2016-05-24] MEDS: PROSOURCE / PROSTAT (PYXIS) 30 ML UDC PO SCH (08:32)
[2016-05-24] MEDS: PANTOPRAZOLE 40 MG TABLET.DR PO SCH (08:32)
[2016-05-24] MEDS: OXCARBAZEPINE 150 MG TABLET PO SCH ×2 (08:32→16:38)
[2016-05-24] MEDS: NITROFURANTOIN/NITROFURAN MAC 100 MG CAPSULE PO SCH ×2 (08:32→20:28)
[2016-05-24] MEDS: MUPIROCIN OINT 2% 22 GM TUBE SCH ×2 (08:36→20:28)
[2016-05-24 16:20] VITALS: BP 109/74
[2016-05-24 19:46] VITALS: BP 119/65
[2016-05-24] MEDS: DOCUSATE SODIUM 100 MG CAPSULE PO SCH (20:29)
--- NOTE | 2016-05-24 20:29 | NUR ---
GPS/RN NOTE: COLACE 200 MG TAB PO GIVEN EARLY WHILE PATIENT IS FULLY AWAKE
[2016-05-25 08:00] VITALS: BP 123/79
[2016-05-25] MEDS: clonazePAM 0.5 MG TABLET PO PRN (08:51)
[2016-05-25] MEDS: OLANZAPINE 5 MG/TAB.RAPDIS PO SCH ×3 (08:51→19:25)
[2016-05-25] MEDS: OXCARBAZEPINE 150 MG TABLET PO SCH ×2 (08:51→17:00)
[2016-05-25] MEDS: PANTOPRAZOLE 40 MG TABLET.DR PO SCH (08:51)
[2016-05-25] MEDS: NITROFURANTOIN/NITROFURAN MAC 100 MG CAPSULE PO SCH ×2 (08:51→21:00)
[2016-05-25] MEDS: FERROUS SULFATE (325 MG) 325 MG/TAB TABLET PO SCH ×2 (08:51→17:00)
[2016-05-25] MEDS: ASCORBIC ACID 500 MG TABLET PO SCH (08:51)
--- NOTE | 2016-05-25 08:51 | NUR ---
ADMINISTERED KLONPIN 0.25 MG PO PRN FOR ANXIETY, IRRITABLE, V/S TAKEN BP-123/79, P-80, CONTINUED MONITORING.
[2016-05-25] MEDS: PROSOURCE / PROSTAT (PYXIS) 30 ML UDC PO SCH (08:52)
[2016-05-25] MEDS: MUPIROCIN OINT 2% 22 GM TUBE SCH ×2 (08:59→21:00)
--- NOTE | 2016-05-25 14:45 | NUR ---
SW spoke with Inez from [place] [address] [place] [id number] and pt. is able to return.
[2016-05-25 16:00] VITALS: BP 116/65
[2016-05-25] MEDS: DOCUSATE SODIUM 100 MG CAPSULE PO SCH (22:47)
[2016-05-26 08:00] VITALS: BP 110/73
[2016-05-26] MEDS: PANTOPRAZOLE 40 MG TABLET.DR PO SCH (09:04)
[2016-05-26] MEDS: OLANZAPINE 5 MG/TAB.RAPDIS PO SCH ×2 (09:04→16:29)
[2016-05-26] MEDS: ASCORBIC ACID 500 MG TABLET PO SCH (09:05)
[2016-05-26] MEDS: FERROUS SULFATE (325 MG) 325 MG/TAB TABLET PO SCH ×2 (09:05→16:29)
[2016-05-26] MEDS: OXCARBAZEPINE 150 MG TABLET PO SCH ×2 (09:05→16:29)
[2016-05-26] MEDS: PROSOURCE / PROSTAT (PYXIS) 30 ML UDC PO SCH (09:05)
[2016-05-26] MEDS: MUPIROCIN OINT 2% 22 GM TUBE SCH ×2 (09:44→20:06)
[2016-05-26 16:00] VITALS: BP 112/75
[2016-05-26] MEDS: clonazePAM 0.5 MG TABLET PO PRN (19:37)
--- NOTE | 2016-05-26 19:38 | NUR ---
GPS/RN NOTE: PATIENT UPSET, AGITATED, YELLS AT HER SON AND GRANDDAUGHTER. KLONOPIN 0.25 MG TAB PO GIVEN.
--- NOTE | 2016-05-26 19:51 | NUR ---
GPS/RN NOTE: AWAKE, ALERT, AGITATED, UPSET, YELLS AT HER SON AND GRAND DAUGHTER WHILE VISITING. MEDICATED WITH KLONOPIN EARLIER. WILL CONTINUE TO MONITOR BEHAVIOR . NOT IN ANY RESPIRATORY DISTRESS.
[2016-05-26 20:07] VITALS: BP 111/66
[2016-05-26] MEDS: DOCUSATE SODIUM 100 MG CAPSULE PO SCH (21:02)
[2016-05-27 08:00] VITALS: BP 119/74
[2016-05-27] MEDS: MUPIROCIN OINT 2% 22 GM TUBE SCH (08:26)
[2016-05-27] MEDS: ASCORBIC ACID 500 MG TABLET PO SCH (08:27)
[2016-05-27] MEDS: FERROUS SULFATE (325 MG) 325 MG/TAB TABLET PO SCH (08:27)
[2016-05-27] MEDS: PANTOPRAZOLE 40 MG TABLET.DR PO SCH (08:27)
[2016-05-27] MEDS: OXCARBAZEPINE 150 MG TABLET PO SCH (08:27)
[2016-05-27] MEDS: OLANZAPINE 5 MG/TAB.RAPDIS PO SCH (08:27)
[2016-05-27] MEDS: PROSOURCE / PROSTAT (PYXIS) 30 ML UDC PO SCH (08:27)
--- NOTE | 2016-05-27 09:00 | NUR ---
RN-CO: DR BROWN GAVE AN ORDER TO DISCONTINUE HOLD AND DISCHARGE PATIENT TODAY. NOTED.
--- NOTE | 2016-05-27 10:00 | NUR ---
pt.endorsed to me by tremayne nuno.no complaints offered,in bed am meds given.informed pt. for dc today.
--- NOTE | 2016-05-27 13:00 | NUR ---
calling transferring facility-requesting all papers be sent.h and p,labs and med sheets faxed.
[2016-05-27] MEDS: LORAZEPAM 0.5 MG TABLET PO PRN (14:50)
--- NOTE | 2016-05-27 14:50 | NUR ---
medicated for yelling with ativan 0.25 po.
--- NOTE | 2016-05-27 15:10 | NUR ---
made ready for discharge,dc photos taken,report to stage driver,belongings,all papers sent.pt. denies suicidal,homicidal ideation.[facility].
== END 2016-05-27 15:30 | DRG 885 ==
LOC: ER 17:57 → GPS 20:24
PROVIDERS: ADMIT Psychiatry & Neurology Psychosomatic Medicine; ATTEND Internal Medicine
DX: F31.9 Bipolar disorder, unspecified (principal); F02.80 Dementia in other diseases classified elsewhere, unspecified severity, without behavioral disturbance, psychotic disturbance, mood disturbance, and anxiety; N17.9 Acute kidney failure, unspecified; N18.9 Chronic kidney disease, unspecified; G92 Toxic encephalopathy; I13.0 Hypertensive heart and chronic kidney disease with heart failure and stage 1 through stage 4 chronic kidney disease, or unspecified chronic kidney disease; N39.0 Urinary tract infection, site not specified; F29 Unspecified psychosis not due to a substance or known physiological condition; G30.9 Alzheimer's disease, unspecified; I50.9 Heart failure, unspecified; E11.22 Type 2 diabetes mellitus with diabetic chronic kidney disease; B96.20 Unspecified Escherichia coli [E. coli] as the cause of diseases classified elsewhere; D64.9 Anemia, unspecified; E03.9 Hypothyroidism, unspecified; E86.9 Volume depletion, unspecified; F41.8 Other specified anxiety disorders; I25.10 Atherosclerotic heart disease of native coronary artery without angina pectoris; J44.9 Chronic obstructive pulmonary disease, unspecified
CPT/HCPCS: 36415; 71010-TC; 80048-TC; 80053-TC; 80061-TC; 80076-TC; 80305; 81000-TC; 82565-TC; 83735-TC; 84100-TC; 85025-TC; 87081-TC; 87086-TC; 87186-TC; A4606; G0480; G6039-TC; Q0163; Z7610